=== PATIENT | female | born 1980 | race Caucasian/White ===

== ENCOUNTER 2017-09-18 12:40 | Outpatient (CLI) | payer MEDICAID | END 2017-09-18 15:12 | disposition home or self-care (01) | LOC: OBT 12:40 → L-D 12:41 → OBT 15:12 | DX: O13.3 Gestational [pregnancy-induced] hypertension without significant proteinuria, third trimester (principal); Z3A.35 35 weeks gestation of pregnancy | CPT/HCPCS: Z7500 ==

== ENCOUNTER 2017-09-25 11:19 | Inpatient (IN) | payer MEDICAID ==
[2017-09-25] MEDS ORDERED: LACTATED RINGER'S 1,000 ML IV (14:25)
[2017-09-25] MEDS ORDERED: BUTORPHANOL 2 MG INJ IV (14:30)
[2017-09-25] MEDS ORDERED: MISOPROSTOL 200 MCG TAB PR (14:30)
[2017-09-25] MEDS ORDERED: CARBOPROST 250 MCG INJ IM (14:30)
[2017-09-25] MEDS ORDERED: IBUPROFEN 600 MG TAB PO (14:30)
[2017-09-25] MEDS ORDERED: METHYLERGONOVINE 0.2 MG INJ IM (14:30)
[2017-09-25] MEDS ORDERED: OXYTOCIN 30 UNITS/LR 500 ML IV (14:30)
[2017-09-25] MEDS: LACTATED RINGER'S 1,000 ML IV ×2 (15:14→21:20)
[2017-09-25 16:11] LABS: ADD MAN DIFF? NO
[2017-09-25 16:17] LABS: BASOPHILS % 0.3 % (0.0-2.0); EOSINOPHILS # 0.1 10^3/ul (0.0-0.5); EOSINOPHILS % 0.7 % (0.0-7.0); HEMATOCRIT 46.2 % (37.0-47.0); HEMOGLOBIN 16.3 g/dl (12.0-16.0); LYMPHOCYTES # 2.1 10^3/ul (0.8-2.9); LYMPHOCYTES % 23.8 % (15.0-51.0); MEAN CORPUSCULAR HEMOGLOBIN 32.7 pg (29.0-33.0); MEAN CORPUSCULAR HGB CONC 35.3 g/dl (32.0-37.0); MEAN CORPUSCULAR VOLUME 92.6 fl (82.0-101.0); MEAN PLATELET VOLUME 12.8 fl (7.4-10.4); MONOCYTE # 0.5 10^3/ul (0.3-0.9); MONOCYTES % 5.9 % (0.0-11.0); NEUTROPHIL # 6.1 10^3/ul (1.6-7.5); NEUTROPHILS % 68.8 % (39.0-77.0); PLATELET COUNT 198 10^3/UL (140-415); RED BLOOD COUNT 4.99 10^6/ul (4.20-5.40); RED CELL DISTRIBUTION WIDTH 12.9 % (11.5-14.5)
[2017-09-25 16:17] LABS: WHITE BLOOD COUNT 8.9 10^3/ul (4.8-10.8)
[2017-09-25 16:39] LABS: INR 0.86; PARTIAL THROMBOPLASTIN TIME 27.7 Sec (25.0-35.0); PROTIME 11.8 Sec (11.9-14.9); PT RATIO 0.9
[2017-09-25 16:40] LABS: ALANINE AMINOTRANSFERASE 20 IU/L (13-69); ALBUMIN 3.9 g/dl (3.3-4.9); ALKALINE PHOSPHATASE 190 IU/L (42-121); ANION GAP 19 (8-16); ASPARTATE AMINO TRANSFERASE 42 IU/L (15-46); BILIRUBIN,INDIRECT 0.5 mg/dl (0-1.1); BILIRUBIN,TOTAL 0.5 mg/dl (0.2-1.3); BLOOD UREA NITROGEN 5 mg/dl (7-20); CALCIUM 9.3 mg/dl (8.4-10.2); CARBON DIOXIDE 18 mmol/L (21-31); CHLORIDE 108 mmol/L (97-110); CREATININE 0.44 mg/dl (0.44-1.00); GLUCOSE 69 mg/dl (70-220); POTASSIUM 4.6 mmol/L (3.5-5.1); SODIUM 140 mmol/L (135-144); TOTAL PROTEIN 7.8 g/dl (6.1-8.1); URIC ACID 3.7 mg/dl (3.1-7.9)
[2017-09-25 16:45] LABS: ADD UMIC YES; UR ASCORBIC ACID NEGATIVE (NEGATIVE); UR BACTERIA FEW /HPF (NONE SEEN); UR BILIRUBIN (Dip) NEGATIVE (NEGATIVE); UR BLOOD (Dip) NEGATIVE (NEGATIVE); UR CLARITY SLIGHTLY CLOUDY (CLEAR); UR COLOR YELLOW (YELLOW); UR GLUCOSE (Dip) NEGATIVE (NEGATIVE); UR KETONES (Dip) 1+ mg/dL (NEGATIVE); UR LEUKOCYTE ESTERASE (Dip) 3+ Leu/ul (NEGATIVE); UR MUCUS FEW /HPF (NONE SEEN); UR NITRITE (Dip) NEGATIVE (NEGATIVE); UR RBC 2 /HPF (0-5); UR SQUAMOUS EPITHELIAL CELL FEW /HPF (FEW); UR TOTAL PROTEIN (Dip) NEGATIVE (NEGATIVE); UR UROBILINOGEN (Dip) NEGATIVE (NEGATIVE); UR WBC 23 /HPF (0-5)
[2017-09-25] MEDS: MINERAL OIL LIGHT 10 ML VIAL TOP (17:00)
[2017-09-25 17:09] LABS: HEPATITIS B SURFACE ANTIGEN NEGATIVE (NEGATIVE)
[2017-09-25] MEDS: BETAMET NA PHOS/AC(6 MG/ML) 5ML INJ IM (20:23)
[2017-09-25] MEDS: LABETALOL 100 MG TAB PO (21:02)
[2017-09-25 21:29] LABS: RAPID PLASMA REAGIN NONREACTIVE (NR)
[2017-09-26] MEDS: LACTATED RINGER'S 1,000 ML IV ×3 (04:14→21:19)
[2017-09-26] MEDS: ASPIRIN (EC) 81 MG TAB PO (09:00)
[2017-09-26] MEDS: FERROUS SULFATE (EC) 325 MG TAB PO (09:23)
[2017-09-26] MEDS: PRENATAL VITAMIN PO (09:23)
[2017-09-26] MEDS: LABETALOL 100 MG TAB PO ×2 (09:24→21:19)
[2017-09-26] MEDS: BETAMET NA PHOS/AC(6 MG/ML) 5ML INJ IM (20:25)
[2017-09-27] MEDS: AMPICILLIN 2 GM/NS (PMX) 100 ML IV (01:09)
[2017-09-27] MEDS: DINOPROSTONE 10 MG VAG SUPP VAG (01:09)
[2017-09-27] MEDS: AMPICILLIN 1 GM/NS (PMX) 50 ML IV ×3 (05:26→13:08)
[2017-09-27] MEDS: LACTATED RINGER'S 1,000 ML IV ×2 (06:53→15:23)
[2017-09-27] MEDS: LABETALOL 100 MG TAB PO (09:03)
[2017-09-27] MEDS: PRENATAL VITAMIN PO (09:03)
[2017-09-27] MEDS: FERROUS SULFATE (EC) 325 MG TAB PO (09:03)
[2017-09-27] MEDS: ASPIRIN (EC) 81 MG TAB PO (13:40)
[2017-09-27] MEDS ORDERED: FENTAnyl 2MCG/ML-ROPIV 0.2% 100 ML (15:37)
[2017-09-27] MEDS: OXYTOCIN 30 UNITS/LR 500 ML IV ×3 (16:19→20:01)
[2017-09-27] MEDS: LIDOCAINE 1% (MPF) 30 ML INJ INJ (17:48)
[2017-09-27] MEDS: LACTATED RINGER'S 1,000 ML IV* (19:25)
[2017-09-27] MEDS ORDERED: METHYLERGONOVINE 0.2 MG INJ IM (19:30)
[2017-09-27] MEDS ORDERED: MISOPROSTOL 200 MCG TAB PR (19:30)
[2017-09-27] MEDS ORDERED: CARBOPROST 250 MCG INJ IM (19:30)
[2017-09-27] MEDS ORDERED: ZOLPIDEM 5 MG TAB PO (19:30)
[2017-09-27] MEDS ORDERED: HYDROCODONE/APAP (5/325) TAB PO ×2 (19:30)
[2017-09-27] MEDS: SENNA/DOCUSATE NA (8.6MG/50MG) TAB PO (21:44)
[2017-09-27] MEDS: MAGNESIUM HYDROXIDE 30ML CUP PO (21:44)
[2017-09-27] MEDS: LABETALOL 200 MG TAB PO (21:45)
[2017-09-27] MEDS: IBUPROFEN 600 MG TAB PO (23:46)
[2017-09-27] MEDS: CEPHALEXIN 500 MG CAP PO (23:47)
[2017-09-28] MEDS: LACTATED RINGER'S 1,000 ML IV* (03:25)
[2017-09-28] MEDS: IBUPROFEN 600 MG TAB PO ×3 (06:02→18:28)
[2017-09-28] MEDS: CEPHALEXIN 500 MG CAP PO ×3 (06:02→18:28)
[2017-09-28 08:24] LABS: ADD MAN DIFF? NO
[2017-09-28 08:29] LABS: BASOPHILS % 0.2 % (0.0-2.0); HEMATOCRIT 36.4 % (37.0-47.0); HEMOGLOBIN 12.5 g/dl (12.0-16.0); LYMPHOCYTES % 20.7 % (15.0-51.0); MEAN CORPUSCULAR HEMOGLOBIN 32.6 pg (29.0-33.0); MEAN CORPUSCULAR HGB CONC 34.3 g/dl (32.0-37.0); MEAN CORPUSCULAR VOLUME 94.8 fl (82.0-101.0); MEAN PLATELET VOLUME 12.2 fl (7.4-10.4); MONOCYTE # 0.8 10^3/ul (0.3-0.9); MONOCYTES % 7.9 % (0.0-11.0); NEUTROPHIL # 6.8 10^3/ul (1.6-7.5); NEUTROPHILS % 70.2 % (39.0-77.0); PLATELET COUNT 157 10^3/UL (140-415); RED BLOOD COUNT 3.84 10^6/ul (4.20-5.40); RED CELL DISTRIBUTION WIDTH 13.3 % (11.5-14.5)
[2017-09-28 08:29] LABS: WHITE BLOOD COUNT 9.7 10^3/ul (4.8-10.8)
[2017-09-28] MEDS: BENZOCAINE 20% 56 ML SPRAY TOP (09:22)
[2017-09-28] MEDS: MAGNESIUM HYDROXIDE 30ML CUP PO ×2 (09:22→22:08)
[2017-09-28] MEDS: WITCH HAZEL/GLYCERIN PAD PR (09:22)
[2017-09-28] MEDS: SENNA/DOCUSATE NA (8.6MG/50MG) TAB PO ×2 (09:22→22:08)
[2017-09-28] MEDS: LANOLIN 7 GM TUBE TOP (09:23)
[2017-09-28] MEDS: DIBUCAINE 1% 30 GM OINT PR (09:23)
[2017-09-28] MEDS: LABETALOL 100 MG TAB PO ×2 (12:34→22:11)
[2017-09-29] MEDS: CEPHALEXIN 500 MG CAP PO ×4 (00:23→18:02)
[2017-09-29] MEDS: IBUPROFEN 600 MG TAB PO ×4 (00:23→18:02)
[2017-09-29] MEDS: MAGNESIUM HYDROXIDE 30ML CUP PO (09:00)
[2017-09-29] MEDS: SENNA/DOCUSATE NA (8.6MG/50MG) TAB PO (09:00)
[2017-09-29] MEDS ORDERED: MEASLES,MUMPS,RUBELLA VACCINE INJ SC* (09:00)
[2017-09-29] MEDS: VARICELLA VACCINE LIVE/PF 1,350 UNIT/0.5 ML ML SC* (09:25)
[2017-09-29] MEDS: LABETALOL 100 MG TAB PO (09:25)
[2017-09-29] MEDS: DIPHTH/TET/ACEL PERTUSS (ADULT) 0.5 ML VIAL IM* (18:04)
== END 2017-09-29 18:35 | disposition home or self-care (01) | DRG 774 ==
LOC: OBT 11:19 → L-D 09-26 08:02 → PP1 09-27 18:46 → OBT 14:09 → L-D 14:00
PROVIDERS: Obstetrics & Gynecology
PROC: 10D07Z6 Extraction of Products of Conception, Vacuum, Via Natural or Artificial Opening (ICD-10-PCS; principal; 2017-09-27)
PROC: 0W8NXZZ Division of Female Perineum, External Approach (ICD-10-PCS; 2017-09-27)
DX: O10.92 Unspecified pre-existing hypertension complicating childbirth (principal); O60.14X0 Preterm labor third trimester with preterm delivery third trimester, not applicable or unspecified; O36.5930 Maternal care for other known or suspected poor fetal growth, third trimester, not applicable or unspecified; O76 Abnormality in fetal heart rate and rhythm complicating labor and delivery; O69.81X0 Labor and delivery complicated by cord around neck, without compression, not applicable or unspecified; Z3A.36 36 weeks gestation of pregnancy; Z37.0 Single live birth
CPT/HCPCS: 62319; 76815; 76818; 80053; 81001; 84560; 85025; 85384; 85610; 85730; 86592; 86850; 86900; 86901; 87340; 90715; 99464